=== PATIENT | female | born 1990 | race Two or more races ===

== ENCOUNTER 2016-09-05 11:29 | Emergency (ER) | payer BC ==
[~2016-09-05] VITALS: Ht 167.6 cm; Wt 54.4 kg
[2016-09-05] MEDS ORDERED: ACETAMINOPHEN ES 500 MG TABLET ONE (12:28)
[2016-09-05] MEDS ORDERED: ACETAMINOPHEN ES 500 MG TABLET PO ONE (12:30)
[2016-09-05 13:11] VITALS: BP 112/88
== END 2016-09-05 13:24 | disposition home or self-care (01) ==
LOC: ER 11:31
DX: S09.90XA Unspecified injury of head, initial encounter (principal); S70.02XA Contusion of left hip, initial encounter; V03.99XA Pedestrian with other conveyance injured in collision with car, pick-up truck or van, unspecified whether traffic or nontraffic accident, initial encounter; Y93.89 Activity, other specified; Y92.413 State road as the place of occurrence of the external cause; Y99.8 Other external cause status
CPT/HCPCS: 70450-TC; 72100-TC; 72170-TC; 84703-TC; A4606; Z7610